=== PATIENT | female | born 1975 | race Caucasian/White ===

== ENCOUNTER 2016-09-07 22:32 | Inpatient (IN) | payer OTHER ==
[~2016-09-07] VITALS: Ht 160 cm; Wt 70.8 kg
[~2016-09-07 22:32] MED LIST: KEFLEX500 MG PO; PERCOCET 5/31 TABLET PO; ZOFRAN4 MG PO
[2016-09-07 23:34] LABS: HEMATOCRIT 41.9 % (36.0-46.0); MCH 30.2 PG (29.0-34.0); MCHC 33.9 G/DL (30.0-36.0); MCV 89.1 FL (83-99); MEAN PLAT.VOLUME 10.2 uM^3 (9.5-12.4); PLATELET COUNT 285 K/uL (156-360); RBC DIS.WIDTH-CV 14.9 % (11.8-14.6); RBC DIS.WIDTH-SD 47.7 % (39-53); WHITE BLOOD COUNT 13.6 K/uL (4.1-10.2)
[2016-09-07 23:44] LABS: CHLORIDE 109 mEq/L (99-109); POTASSIUM 4.3 mEq/L (3.7-5.4); SODIUM 144 mEq/L (136-147)
[2016-09-07 23:45] LABS: GLUCOSE 119 mg/dL (70-99)
[2016-09-07 23:47] LABS: ANION GAP 10 MEQ/L (2-14)
[2016-09-07 23:49] LABS: GFR ESTIMATE (CALCULATED) > 59 mL/min/; SERUM ETHYL ALCOHOL 76 mg/dL
[2016-09-07 23:50] LABS: UREA NITROGEN (BUN) 7 mg/dL (9-23)
[2016-09-07 23:58] LABS: AMPHETAMINE NEGATIVE (500 ng/mL); BARBITURATES NEGATIVE (200 ng/mL); BENZODIAZEPINES NEGATIVE (150 ng/mL); COCAINE NEGATIVE (150 ng/mL); INTERNAL CONTROLS VALID? YES; METHADONE NEGATIVE (200 ng/mL); METHAMPHETAMINE NEGATIVE (500 ng/mL); OPIATES (MORPHINE) NEGATIVE (100 ng/mL); OXYCODONE NEGATIVE (100 ng/mL); PHENCYCLIDINE NEGATIVE (25 ng/mL); PROPOXYPHENE NEGATIVE (300 ng/mL); THC CANNABINOIDS NEGATIVE (50 ng/mL); TRICYCLIC ANTIDEPRESSANTS NEGATIVE (300 ng/mL)
[2016-09-07 23:59] LABS: QUANTITATIVE HCG < 4.0 MIU/ML
[2016-09-08] MEDS ORDERED: FLAGYL500 MG PO (01:27)
[2016-09-08 02:13] VITALS: BP 131/89
[2016-09-08 07:49] VITALS: BP 147/70
[2016-09-08 15:28] VITALS: BP 154/95
[2016-09-09 08:00] VITALS: BP 118/67
[2016-09-09 15:40] VITALS: BP 141/98
[2016-09-10 07:56] VITALS: BP 106/75
[2016-09-10] MEDS ORDERED: ESCITALOPRAM OX10 MG PO (10:13)
[2016-09-10] MEDS ORDERED: FLAGYL500 MG PO (10:13)
[2016-09-10] MEDS ORDERED: BUSPAR10 MG PO (10:13)
== END 2016-09-10 16:28 | disposition home or self-care (01) | DRG 885 ==
LOC: EME 22:32 → 1WEST 09-08 00:36 → EDOF 09-08 00:36 → 1WEST 09-08 01:53
DX: F33.9 Major depressive disorder, recurrent, unspecified (principal); R45.851 Suicidal ideations; F15.20 Other stimulant dependence, uncomplicated; N39.0 Urinary tract infection, site not specified; B96.89 Other specified bacterial agents as the cause of diseases classified elsewhere; F41.9 Anxiety disorder, unspecified; F10.20 Alcohol dependence, uncomplicated; F17.210 Nicotine dependence, cigarettes, uncomplicated; J45.909 Unspecified asthma, uncomplicated; Z88.0 Allergy status to penicillin; Z81.1 Family history of alcohol abuse and dependence
CPT/HCPCS: 80048; 84702; 85027; 90839; 99281; 99284; G0480